=== PATIENT | female | born 1995 | race Caucasian/White ===

== ENCOUNTER 2016-08-20 20:17 | Emergency (ER) | payer OTHER ==
[~2016-08-20] VITALS: Ht 152.4 cm; Wt 68.0 kg
[~2016-08-20 20:17] MED LIST: IBUPROFEN800 MG PO; KEFLEX 250MG C250 MG PO; KETOROLAC TROME10 M1 PO; LEXAPRO10 M1 PO; PRENATAL1 TA2 PO; TRAMADOL HCL50 M1 PO; WELLBUTRIN XL300 MG PO; ZOFRAN4 M2 SL
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
[2016-08-20] MEDS ORDERED: MIRENA1 EACH (21:16)
[2016-08-20] MEDS ORDERED: ESCITALOPRAM OX20 MG PO (21:17)
[2016-08-20] MEDS ORDERED: BUSPIRONE HCL15 M1 PO (21:17)
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
[2016-08-20] MEDS ORDERED: CYCLOBENZAPRINE10 M1 PO (23:37)
[2016-08-20] MEDS ORDERED: IBUPROFEN600 M1 PO (23:37)
[2016-08-21 00:07] VITALS: BP 132/82
== END 2016-08-21 00:08 ==
LOC: ERH 20:17
DX: S09.90XA Unspecified injury of head, initial encounter (principal); S80.01XA Contusion of right knee, initial encounter; V49.50XA Passenger injured in collision with unspecified motor vehicles in traffic accident, initial encounter
CPT/HCPCS: 73562-RT; 81025